=== PATIENT | female | born 1935 | race African-American/Black ===

== ENCOUNTER 2019-02-11 12:00 | Inpatient (IN) | payer MEDICARE, OTHER ==
[~2019-02-11] VITALS: Ht 160 cm; Wt 59.6 kg
[~2019-02-11 12:00] MED LIST: ALLO300T2 PO; AMLO10TA80 PO; ASPI-986 PO; BENA40TA9 PO; CARV12.545 PO; EZET1TAB6 PO; FURO40TA5 PO; LEVO125T8 PO
[2019-02-11] MEDS ORDERED: MAGNESIUM 2 G PREMIX 50 ML IV STA (12:32)
[2019-02-11] MEDS ORDERED: METHYLPREDNISOLONE SOD SUCC 125 MG/2 ML VIAL IV STA (12:32)
[2019-02-11] MEDS ORDERED: IPRATROPIUM BROMIDE (0.02%) 0.5MG/2.5ML NEB HHN STA (12:32)
[2019-02-11] MEDS ORDERED: ALBUTEROL (0.083%) 2.5MG/3ML NEB HHN STA (12:32)
[2019-02-11] MEDS ORDERED: FUROSEMIDE 20MG/2ML VIAL IVP ONE (12:45)
[2019-02-11 13:03] LABS: BASOPHILS % 0.2 % (0.0-2.0); EOSINOPHILS % 0.1 % (0.0-5.0); HEMATOCRIT. 35.9 % (36.0-48.0); HEMOGLOBIN. 11.8 g/dL (12.0-16.0); MEAN CORPUSCULAR HEMOGLOBIN 29.1 pg (28.0-32.0); MEAN CORPUSCULAR VOLUME 88.3 fL (81.0-99.0); MEAN PLATELET VOLUME 8.8 fl (7.4-10.4); MONOCYTES % 5.3 % (2.0-8.0); NEUTROPHILS % 85.4 % (40.0-76.0); PLATELET 298 x1000/uL (130-400); RED BLOOD CELL COUNT 4.07 mill/uL (4.2-5.4)
[2019-02-11 13:10] LABS: CHLORIDE 98 mEq/L (98-107); INR 1.1; PARTIAL THROMBOPLASTIN TIME 26.1 sec (23.4-31.0); PROTHROMBIN TIME 10.8 sec (9.6-11.0)
[2019-02-11] MEDS ORDERED: ASPIRIN 81MG TABLET PO ONE (13:30)
[2019-02-11] MEDS ORDERED: LEVOFLOXACIN 500MG PREMIX 100 ML IV ONE (13:30)
[2019-02-11 15:33] LABS: BG CARBOXYHEMOGLOBIN 0.1 % (0.5-1.5); BG FRACTION INSPIRED OXYGEN 40; BG HCO3 ACT 23.5 mmol/L (22.0-26.0); BG METHEMOGLOBIN 0.2 % (0.0-1.5); BG OXYHEMOGLOBIN 90.7 % (94.0-97.0); BG PCO2 38.4 mmHg (35.0-45.0); BG PH 7.405 (7.350-7.450); BG PO2 64.3 mmHg (75.0-100.0); BG SAMPLE SITE RIGHT BRACHIAL; BG TOTAL HEMOGLOBIN 11.4 g/dL (12.0-18.0); BG VENT MODE MASK - BIPAP
[2019-02-11] MEDS ORDERED: ACETAMINOPHEN 325MG TABLET PO PRN (17:45)
[2019-02-11] MEDS ORDERED: LORAZEPAM 0.5MG TABLET PO PRN (17:45)
[2019-02-11] MEDS ORDERED: ACETAMINOPHEN 650MG SUPP PR PRN (17:45)
[2019-02-11] MEDS ORDERED: CLONIDINE 0.1MG TABLET PO PRN (17:45)
[2019-02-11] MEDS ORDERED: HYDROCODONE/ACETAMINOPHEN 5/325MG TABLET PO PRN (17:45)
[2019-02-11] MEDS ORDERED: DOCUSATE SODIUM 100MG CAPSULE PO PRN (17:45)
[2019-02-11] MEDS ORDERED: MAGNESIUM/ALUMINUM HYDROXIDE/SIMETHICONE 30ML UDC PO PRN (17:45)
[2019-02-11] MEDS ORDERED: DIPHENHYDRAMINE 50MG/ML VIAL IV PRN (17:45)
[2019-02-11] MEDS ORDERED: GUAIFENESIN 200MG/10ML SUGAR FREE UDC PO PRN (17:45)
[2019-02-11] MEDS ORDERED: LEVOFLOXACIN 500MG PREMIX 100 ML IV SCH (17:45)
[2019-02-11] MEDS ORDERED: DEXTROSE 50% WATER 50ML SYRINGE IV PRN (17:45)
[2019-02-11] MEDS ORDERED: IPRATROPIUM/ALBUTEROL 0.5-3(2.5)MG/3ML NEB INH PRN (17:45)
[2019-02-11] MEDS ORDERED: ONDANSETRON HCL 4MG/2ML INJ IV PRN (17:45)
[2019-02-11] MEDS: INSULIN LISPRO 100 UNITS/ML SUBCUT SCH ×2 (18:10→22:11)
[2019-02-11 18:11] VITALS: BP 130/63
[2019-02-11] MEDS ORDERED: ASPIRIN 81MG EC TABLET PO NR (18:20)
[2019-02-11 18:21] VITALS: BP 130/63
[2019-02-11 19:11] VITALS: BP 128/62
[2019-02-11 20:16] VITALS: BP 101/66
[2019-02-11] MEDS: IPRATROPIUM/ALBUTEROL 0.5-3(2.5)MG/3ML NEB INH SCH (20:44)
[2019-02-11] MEDS: BUDESONIDE 0.5MG/2ML NEB HHN SCH (20:45)
[2019-02-11] MEDS ORDERED: NA PHOS,M-B/NA PHOS,DI-BA ENEMA 118ML PR PRN (21:00)
[2019-02-11] MEDS ORDERED: IOHEXOL-350 100 ML BOTTLE ONE (21:30)
[2019-02-11] MEDS: ENOXAPARIN 30MG/0.3ML SYR SUBCUT SCH (21:50)
[2019-02-11] MEDS: ATORVASTATIN CALCIUM 40MG TABLET PO SCH (21:51)
[2019-02-11] MEDS: FAMOTIDINE 20MG/2ML VIAL IV SCH (21:51)
[2019-02-11 22:00] VITALS: BP 107/59
[2019-02-11] MEDS: NITROGLYCERIN OINT 1GM/INCH UDPKT TD SCH (22:00)
[2019-02-11] MEDS: METHYLPREDNISOLONE SOD SUCC 40 MG/ML VIAL IV SCH (22:02)
[2019-02-11] MEDS: BLOOD SUGAR DIAGNOSTIC STRIP TEST SCH (22:09)
[2019-02-12] VITALS (16 sets, daily range): BP systolic 87–146; BP diastolic 53–92
[2019-02-12] MEDS: IPRATROPIUM/ALBUTEROL 0.5-3(2.5)MG/3ML NEB INH SCH ×6 (00:40→21:14)
[2019-02-12] MEDS: BLOOD SUGAR DIAGNOSTIC STRIP TEST SCH ×4 (06:00→21:09)
[2019-02-12] MEDS: NITROGLYCERIN OINT 1GM/INCH UDPKT TD SCH ×3 (06:00→21:36)
[2019-02-12] MEDS: METHYLPREDNISOLONE SOD SUCC 40 MG/ML VIAL IV SCH ×3 (06:11→21:40)
[2019-02-12 06:47] LABS: BASOPHILS % 0.2 % (0.0-2.0); HEMATOCRIT. 29.9 % (36.0-48.0); HEMOGLOBIN. 10.1 g/dL (12.0-16.0); LYMPHOCYTES % 16.5 % (20.0-50.0); MEAN CORPUSCULAR HEMOGLOBIN 29.5 pg (28.0-32.0); MEAN CORPUSCULAR VOLUME 87.6 fL (81.0-99.0); MEAN PLATELET VOLUME 8.3 fl (7.4-10.4); MONOCYTES % 7.5 % (2.0-8.0); NEUTROPHILS % 75.8 % (40.0-76.0); PLATELET 292 x1000/uL (130-400); RED BLOOD CELL COUNT 3.42 mill/uL (4.2-5.4); RED CELL DISTRIBUTION WIDTH 14.8 % (11.6-14.6)
[2019-02-12 07:03] LABS: CHLORIDE 98 mEq/L (98-107)
[2019-02-12 07:09] LABS: LDL CHOLESTEROL 61 mg/dL (5-100)
[2019-02-12 07:10] LABS: HDL CHOLESTEROL 82 mg/dL (40-59)
[2019-02-12 07:12] LABS: CREATINE KINASE MB FRACTION 5.1 ng/mL (0.5-3.6)
[2019-02-12 07:13] LABS: CREATINE KINASE 135 IU/L (26-192)
[2019-02-12 07:14] LABS: T4 FREE 1.59 ng/dL (0.76-1.46)
[2019-02-12] MEDS: INSULIN LISPRO 100 UNITS/ML SUBCUT SCH ×4 (07:20→21:34)
[2019-02-12] MEDS: BUDESONIDE 0.5MG/2ML NEB HHN SCH ×2 (08:36→21:13)
[2019-02-12] MEDS: FUROSEMIDE 40MG/4ML VIAL IV SCH (10:14)
[2019-02-12 10:53] LABS: BG BASE EXCESS 1.1 mmol/L (-2.0-2.0); BG CARBOXYHEMOGLOBIN 0.3 % (0.5-1.5); BG DEOXYHEMOGLOBIN 8.6 % (0.0-5.0); BG FRACTION INSPIRED OXYGEN 40; BG HCO3 ACT 24.9 mmol/L (22.0-26.0); BG METHEMOGLOBIN 0.5 % (0.0-1.5); BG OXYGEN SATURATION 91.3 % (92.0-98.5); BG OXYHEMOGLOBIN 90.6 % (94.0-97.0); BG PCO2 36.6 mmHg (35.0-45.0); BG PH 7.451 (7.350-7.450); BG PO2 63.7 mmHg (75.0-100.0); BG SAMPLE SITE RIGHT RADIAL; BG TOTAL HEMOGLOBIN 10.8 g/dL (12.0-18.0); BG VENT MODE MASK - BIPAP
[2019-02-12 11:06] LABS: CLARITY URINE CLEAR (CLEAR); COLOR URINE YELLOW (YELLOW); KETONES URINE NEGATIVE (NEGATIVE); LEUKOCYTE ESTERASE URINE NEGATIVE (NEGATIVE); NITRITE URINE NEGATIVE (NEGATIVE); OCCULT BLOOD URINE NEGATIVE (NEGATIVE); PROTEIN URINE NEGATIVE (NEGATIVE); SPECIFIC GRAVITY URINE 1.028 (1.005-1.030)
[2019-02-12 11:42] LABS: *BENZODIAZEPINES SCREEN URINE NEGATIVE (NEGATIVE); *COCAINE SCREEN URINE NEGATIVE (NEGATIVE)
[2019-02-12 11:43] LABS: CANNABINOID URINE SCREEN NEGATIVE (NEGATIVE); METHADONE URINE SCREEN NEGATIVE (NEGATIVE); OPIATES URINE SCREEN NEGATIVE (NEGATIVE); PHENCYCLIDINE URINE SCREEN NEGATIVE (NEGATIVE)
[2019-02-12 11:44] LABS: *AMPHETAMINES SCREEN URINE NEGATIVE (NEGATIVE); *BARBITURATES SCREEN URINE NEGATIVE (NEGATIVE)
[2019-02-12 14:01] LABS: HEPATITIS B SURFACE ANTIGEN NEGATIVE
[2019-02-12] MEDS: LEVOFLOXACIN 250MG PREMIX 50 ML IV SCH (14:07)
[2019-02-12 14:30] LABS: HEPATITIS A AB IGM NEGATIVE (NEGATIVE)
[2019-02-12] MEDS: MAGNESIUM HYDROXIDE 400MG/5ML 30ML UDC PO PRN (17:52)
[2019-02-12] MEDS: ENOXAPARIN 30MG/0.3ML SYR SUBCUT SCH (20:37)
[2019-02-12] MEDS: FAMOTIDINE 20MG/2ML VIAL IV SCH (20:38)
[2019-02-12] MEDS: ATORVASTATIN CALCIUM 40MG TABLET PO SCH (20:41)
[2019-02-13] VITALS (12 sets, daily range): BP systolic 98–135; BP diastolic 53–77
[2019-02-13] MEDS: IPRATROPIUM/ALBUTEROL 0.5-3(2.5)MG/3ML NEB INH SCH ×4 (05:08→20:33)
[2019-02-13] MEDS: METHYLPREDNISOLONE SOD SUCC 40 MG/ML VIAL IV SCH ×3 (05:18→21:44)
[2019-02-13] MEDS: NITROGLYCERIN OINT 1GM/INCH UDPKT TD SCH ×3 (05:23→21:45)
[2019-02-13] MEDS: BLOOD SUGAR DIAGNOSTIC STRIP TEST SCH ×4 (07:15→20:24)
[2019-02-13] MEDS: INSULIN LISPRO 100 UNITS/ML SUBCUT SCH ×4 (07:20→20:40)
[2019-02-13] MEDS: FUROSEMIDE 40MG/4ML VIAL IV SCH (08:56)
[2019-02-13] MEDS: LOSARTAN POTASSIUM 25 MG TABLET PO SCH (09:00)
[2019-02-13] MEDS ORDERED: FUROSEMIDE 40MG/4ML VIAL IVP SCH (09:00)
[2019-02-13 14:20] LABS: BG BASE EXCESS 0.3 mmol/L (-2.0-2.0); BG CARBOXYHEMOGLOBIN 0.3 % (0.5-1.5); BG DEOXYHEMOGLOBIN 10.7 % (0.0-5.0); BG HCO3 ACT 24.3 mmol/L (22.0-26.0); BG METHEMOGLOBIN 0.3 % (0.0-1.5); BG OXYGEN SATURATION 89.2 % (92.0-98.5); BG OXYHEMOGLOBIN 88.7 % (94.0-97.0); BG PCO2 36.7 mmHg (35.0-45.0); BG PH 7.439 (7.350-7.450); BG PO2 58.9 mmHg (75.0-100.0); BG SAMPLE SITE RIGHT RADIAL; BG TOTAL HEMOGLOBIN 10.4 g/dL (12.0-18.0); BG VENT MODE MASK - BIPAP; BG VENT RATE 15 set
[2019-02-13] MEDS: LEVOFLOXACIN 250MG PREMIX 50 ML IV SCH (15:08)
[2019-02-13] MEDS: BUDESONIDE 0.5MG/2ML NEB HHN SCH ×2 (15:08→20:32)
[2019-02-13] MEDS: ENOXAPARIN 30MG/0.3ML SYR SUBCUT SCH (20:22)
[2019-02-13] MEDS: ATORVASTATIN CALCIUM 40MG TABLET PO SCH (20:28)
[2019-02-13] MEDS: FAMOTIDINE 20MG/2ML VIAL IV SCH (20:28)
[2019-02-14] VITALS (15 sets, daily range): BP systolic 97–137; BP diastolic 49–87
[2019-02-14] MEDS: IPRATROPIUM/ALBUTEROL 0.5-3(2.5)MG/3ML NEB INH SCH ×6 (00:09→20:27)
[2019-02-14] MEDS: METHYLPREDNISOLONE SOD SUCC 40 MG/ML VIAL IV SCH ×3 (06:00→21:56)
[2019-02-14 06:05] LABS: HEMATOCRIT. 29.8 % (36.0-48.0); HEMOGLOBIN. 9.9 g/dL (12.0-16.0); MEAN CORPUSCULAR HEMOGLOBIN 29.1 pg (28.0-32.0); MEAN CORPUSCULAR VOLUME 87.2 fL (81.0-99.0); MEAN PLATELET VOLUME 8.3 fl (7.4-10.4); PLATELET 294 x1000/uL (130-400); RED BLOOD CELL COUNT 3.41 mill/uL (4.2-5.4); RED CELL DISTRIBUTION WIDTH 14.7 % (11.6-14.6)
[2019-02-14] MEDS: NITROGLYCERIN OINT 1GM/INCH UDPKT TD SCH ×3 (06:23→22:10)
[2019-02-14] MEDS: BLOOD SUGAR DIAGNOSTIC STRIP TEST SCH ×4 (06:31→20:16)
[2019-02-14] MEDS: INSULIN LISPRO 100 UNITS/ML SUBCUT SCH ×4 (07:45→20:16)
[2019-02-14] MEDS: LOSARTAN POTASSIUM 25 MG TABLET PO SCH (09:00)
[2019-02-14] MEDS: BUDESONIDE 0.5MG/2ML NEB HHN SCH ×2 (09:02→20:27)
[2019-02-14] MEDS: FUROSEMIDE 40MG/4ML VIAL IV SCH (09:13)
[2019-02-14 13:01] LABS: PLATELET ESTIMATE NORMAL
[2019-02-14] MEDS: LEVOFLOXACIN 250MG PREMIX 50 ML IV SCH (14:06)
[2019-02-14] MEDS: ENOXAPARIN 30MG/0.3ML SYR SUBCUT SCH (20:12)
[2019-02-14] MEDS: ATORVASTATIN CALCIUM 40MG TABLET PO SCH (20:12)
[2019-02-14] MEDS: FAMOTIDINE 20MG/2ML VIAL IV SCH (20:20)
[2019-02-14] MEDS: IRON SUCROSE COMPLEX 100 MG/5 ML ML IV SCH (22:11)
[2019-02-15] VITALS (16 sets, daily range): BP systolic 97–124; BP diastolic 37–72
[2019-02-15] MEDS: IPRATROPIUM/ALBUTEROL 0.5-3(2.5)MG/3ML NEB INH SCH ×5 (00:25→21:23)
[2019-02-15] MEDS: BLOOD SUGAR DIAGNOSTIC STRIP TEST SCH ×4 (06:29→20:38)
[2019-02-15] MEDS: METHYLPREDNISOLONE SOD SUCC 40 MG/ML VIAL IV SCH ×2 (06:34→22:20)
[2019-02-15] MEDS: NITROGLYCERIN OINT 1GM/INCH UDPKT TD SCH ×3 (06:35→22:20)
[2019-02-15 06:57] LABS: HEMATOCRIT. 30.3 % (36.0-48.0); MEAN CORPUSCULAR HEMOGLOBIN 28.7 pg (28.0-32.0); MEAN CORPUSCULAR VOLUME 87.2 fL (81.0-99.0); MEAN PLATELET VOLUME 8.4 fl (7.4-10.4); PLATELET 276 x1000/uL (130-400); RED BLOOD CELL COUNT 3.48 mill/uL (4.2-5.4); RED CELL DISTRIBUTION WIDTH 14.6 % (11.6-14.6)
[2019-02-15] MEDS: INSULIN LISPRO 100 UNITS/ML SUBCUT SCH ×4 (07:20→20:49)
[2019-02-15] MEDS: FUROSEMIDE 40MG/4ML VIAL IV SCH (08:06)
[2019-02-15] MEDS: LOSARTAN POTASSIUM 25 MG TABLET PO SCH (08:07)
[2019-02-15] MEDS: BUDESONIDE 0.5MG/2ML NEB HHN SCH ×2 (10:20→21:26)
[2019-02-15 12:22] LABS: PLATELET ESTIMATE NORMAL
[2019-02-15] MEDS: LEVOFLOXACIN 250MG PREMIX 50 ML IV SCH (14:22)
[2019-02-15] MEDS ORDERED: ZOSYN PER PHARMACY XX SCH (15:30)
[2019-02-15] MEDS: PIPERACILLIN/TAZ 2.25G PREMIX 50 ML IV SCH (17:26)
[2019-02-15] MEDS: FAMOTIDINE 20MG/2ML VIAL IV SCH (20:34)
[2019-02-15] MEDS: ENOXAPARIN 30MG/0.3ML SYR SUBCUT SCH (20:34)
[2019-02-15] MEDS: ATORVASTATIN CALCIUM 40MG TABLET PO SCH (20:34)
[2019-02-15] MEDS: IRON SUCROSE COMPLEX 100 MG/5 ML ML IV SCH (23:41)
[2019-02-16] VITALS (18 sets, daily range): BP systolic 103–135; BP diastolic 53–99
[2019-02-16] MEDS: IPRATROPIUM/ALBUTEROL 0.5-3(2.5)MG/3ML NEB INH SCH ×6 (00:44→20:58)
[2019-02-16] MEDS: PIPERACILLIN/TAZ 2.25G PREMIX 50 ML IV SCH ×4 (01:14→17:57)
[2019-02-16] MEDS: BLOOD SUGAR DIAGNOSTIC STRIP TEST SCH ×4 (06:12→20:48)
[2019-02-16] MEDS: NITROGLYCERIN OINT 1GM/INCH UDPKT TD SCH ×3 (06:20→22:33)
[2019-02-16 07:10] LABS: HEMOGLOBIN. 10.8 g/dL (12.0-16.0); MEAN CORPUSCULAR HEMOGLOBIN 28.7 pg (28.0-32.0); MEAN PLATELET VOLUME 8.5 fl (7.4-10.4); PLATELET 301 x1000/uL (130-400); RED BLOOD CELL COUNT 3.75 mill/uL (4.2-5.4); RED CELL DISTRIBUTION WIDTH 14.6 % (11.6-14.6)
[2019-02-16] MEDS: INSULIN LISPRO 100 UNITS/ML SUBCUT SCH ×4 (07:20→20:49)
[2019-02-16] MEDS: FUROSEMIDE 40MG/4ML VIAL IV SCH (08:44)
[2019-02-16] MEDS: LOSARTAN POTASSIUM 25 MG TABLET PO SCH (08:44)
[2019-02-16] MEDS: BUDESONIDE 0.5MG/2ML NEB HHN SCH ×2 (09:43→20:58)
[2019-02-16] MEDS: METHYLPREDNISOLONE SOD SUCC 40 MG/ML VIAL IV SCH ×2 (10:42→22:33)
[2019-02-16] MEDS ORDERED: LORAZEPAM 0.5MG TABLET PO PRN (12:30)
[2019-02-16] MEDS ORDERED: HYDROCODONE/ACETAMINOPHEN 5/325MG TABLET PO PRN (12:30)
[2019-02-16 15:25] LABS: PLATELET ESTIMATE NORMAL
[2019-02-16] MEDS: ENOXAPARIN 30MG/0.3ML SYR SUBCUT SCH (20:44)
[2019-02-16] MEDS: FAMOTIDINE 20MG/2ML VIAL IV SCH (20:44)
[2019-02-16] MEDS: ATORVASTATIN CALCIUM 40MG TABLET PO SCH (20:44)
[2019-02-16] MEDS: IRON SUCROSE COMPLEX 100 MG/5 ML ML IV SCH (22:36)
[2019-02-17] VITALS (17 sets, daily range): BP systolic 101–131; BP diastolic 45–71
[2019-02-17] MEDS: IPRATROPIUM/ALBUTEROL 0.5-3(2.5)MG/3ML NEB INH SCH ×6 (00:31→20:52)
[2019-02-17] MEDS: PIPERACILLIN/TAZ 2.25G PREMIX 50 ML IV SCH ×4 (00:50→18:49)
[2019-02-17] MEDS: NITROGLYCERIN OINT 1GM/INCH UDPKT TD SCH ×3 (06:12→22:12)
[2019-02-17 06:17] LABS: HEMATOCRIT. 32.2 % (36.0-48.0); HEMOGLOBIN. 10.6 g/dL (12.0-16.0); MEAN CORPUSCULAR HEMOGLOBIN 28.8 pg (28.0-32.0); MEAN CORPUSCULAR VOLUME 87.4 fL (81.0-99.0); MEAN PLATELET VOLUME 8.5 fl (7.4-10.4); PLATELET 276 x1000/uL (130-400); RED BLOOD CELL COUNT 3.68 mill/uL (4.2-5.4); RED CELL DISTRIBUTION WIDTH 14.9 % (11.6-14.6)
[2019-02-17] MEDS: BLOOD SUGAR DIAGNOSTIC STRIP TEST SCH ×4 (06:27→20:20)
[2019-02-17 06:29] LABS: CHLORIDE 103 mEq/L (98-107)
[2019-02-17] MEDS: INSULIN LISPRO 100 UNITS/ML SUBCUT SCH ×5 (07:20→20:25)
[2019-02-17] MEDS: FUROSEMIDE 40MG TABLET PO SCH (09:07)
[2019-02-17] MEDS: LOSARTAN POTASSIUM 25 MG TABLET PO SCH (09:07)
[2019-02-17] MEDS: BUDESONIDE 0.5MG/2ML NEB HHN SCH ×2 (09:23→20:52)
[2019-02-17 09:48] LABS: BG BASE EXCESS 2.7 mmol/L (-2.0-2.0); BG CARBOXYHEMOGLOBIN 0.4 % (0.5-1.5); BG DEOXYHEMOGLOBIN 32.3 % (0.0-5.0); BG FRACTION INSPIRED OXYGEN 21; BG HCO3 ACT 27.7 mmol/L (22.0-26.0); BG METHEMOGLOBIN 0.2 % (0.0-1.5); BG OXYGEN SATURATION 67.5 % (92.0-98.5); BG OXYHEMOGLOBIN 67.1 % (94.0-97.0); BG PCO2 44.4 mmHg (35.0-45.0); BG PH 7.413 (7.350-7.450); BG PO2 35.5 mmHg (75.0-100.0); BG SAMPLE SITE RIGHT BRACHIAL; BG TOTAL HEMOGLOBIN 11.5 g/dL (12.0-18.0); BG VENT MODE ROOM AIR
[2019-02-17 10:44] LABS: NUCLEATED RED BLOOD CELLS 1 /100 WBC
[2019-02-17 10:45] LABS: PLATELET ESTIMATE NORMAL
[2019-02-17] MEDS: METHYLPREDNISOLONE SOD SUCC 40 MG/ML VIAL IV SCH ×2 (11:04→22:12)
[2019-02-17] MEDS: FAMOTIDINE 20MG/2ML VIAL IV SCH (20:12)
[2019-02-17] MEDS: ENOXAPARIN 40MG/0.4ML SYR SUBCUT SCH (20:12)
[2019-02-17] MEDS: ATORVASTATIN CALCIUM 40MG TABLET PO SCH (20:12)
[2019-02-18] VITALS (18 sets, daily range): BP systolic 94–132; BP diastolic 51–83
[2019-02-18] MEDS: IPRATROPIUM/ALBUTEROL 0.5-3(2.5)MG/3ML NEB INH SCH ×6 (00:25→21:19)
[2019-02-18] MEDS: PIPERACILLIN/TAZ 2.25G PREMIX 50 ML IV SCH ×5 (00:52→23:07)
[2019-02-18] MEDS: NITROGLYCERIN OINT 1GM/INCH UDPKT TD SCH ×3 (06:14→22:43)
[2019-02-18] MEDS: BLOOD SUGAR DIAGNOSTIC STRIP TEST SCH ×4 (06:17→20:19)
[2019-02-18 06:36] LABS: HEMATOCRIT 32.1 % (36.0-48.0); HEMOGLOBIN 10.4 g/dL (12.0-16.0); MEAN CORPUSCULAR HEMOGLOBIN 28.2 pg (28.0-32.0); MEAN CORPUSCULAR VOLUME 87.3 fL (81.0-99.0); PLATELET 281 x1000/uL (130-400); RED BLOOD CELL COUNT 3.68 mill/uL (4.2-5.4); RED CELL DISTRIBUTION WIDTH 14.8 % (11.6-14.6)
[2019-02-18] MEDS: INSULIN LISPRO 100 UNITS/ML SUBCUT SCH ×4 (07:20→20:19)
[2019-02-18] MEDS: FUROSEMIDE 40MG TABLET PO SCH (07:52)
[2019-02-18] MEDS: LOSARTAN POTASSIUM 25 MG TABLET PO SCH (07:52)
[2019-02-18] MEDS: METHYLPREDNISOLONE SOD SUCC 40 MG/ML VIAL IV SCH (09:59)
[2019-02-18] MEDS: BUDESONIDE 0.5MG/2ML NEB HHN SCH ×2 (10:11→21:19)
[2019-02-18] MEDS ORDERED: LACTULOSE 20G/30ML UDC PO SCH (14:45)
[2019-02-18] MEDS: FAMOTIDINE 20MG/2ML VIAL IV SCH (20:16)
[2019-02-18] MEDS: ATORVASTATIN CALCIUM 40MG TABLET PO SCH (20:16)
[2019-02-18] MEDS: ENOXAPARIN 40MG/0.4ML SYR SUBCUT SCH (20:16)
[2019-02-18] MEDS ORDERED: FUROSEMIDE 40MG/4ML VIAL IVP NR (22:45)
[2019-02-18 22:52] LABS: BG BASE EXCESS 5.7 mmol/L (-2.0-2.0); BG DEOXYHEMOGLOBIN 10.2 % (0.0-5.0); BG FRACTION INSPIRED OXYGEN 50; BG HCO3 ACT 31.4 mmol/L (22.0-26.0); BG METHEMOGLOBIN 0.1 % (0.0-1.5); BG OXYGEN SATURATION 89.8 % (92.0-98.5); BG OXYHEMOGLOBIN 89.7 % (94.0-97.0); BG PCO2 51.1 mmHg (35.0-45.0); BG PH 7.407 (7.350-7.450); BG PO2 61.3 mmHg (75.0-100.0); BG SAMPLE SITE RIGHT RADIAL; BG TOTAL HEMOGLOBIN 11.3 g/dL (12.0-18.0); BG VENT MODE MASK - BIPAP
[2019-02-19] VITALS (12 sets, daily range): BP systolic 88–132; BP diastolic 49–78
[2019-02-19] MEDS: IPRATROPIUM/ALBUTEROL 0.5-3(2.5)MG/3ML NEB INH SCH ×6 (01:29→20:27)
[2019-02-19] MEDS: BLOOD SUGAR DIAGNOSTIC STRIP TEST SCH ×4 (05:55→21:07)
[2019-02-19] MEDS: PIPERACILLIN/TAZ 2.25G PREMIX 50 ML IV SCH ×4 (05:56→23:15)
[2019-02-19] MEDS: NITROGLYCERIN OINT 1GM/INCH UDPKT TD SCH ×3 (05:57→21:08)
[2019-02-19] MEDS: INSULIN LISPRO 100 UNITS/ML SUBCUT SCH ×4 (07:20→21:00)
[2019-02-19] MEDS: MAGNESIUM HYDROXIDE 400MG/5ML 30ML UDC PO PRN (08:05)
[2019-02-19] MEDS: LOSARTAN POTASSIUM 25 MG TABLET PO SCH (08:05)
[2019-02-19] MEDS: FUROSEMIDE 40MG TABLET PO SCH (08:05)
[2019-02-19] MEDS: BUDESONIDE 0.5MG/2ML NEB HHN SCH ×2 (08:19→20:27)
[2019-02-19] MEDS ORDERED: METHYLPREDNISOLONE SOD SUCC 40 MG/ML VIAL IV SCH (09:00)
[2019-02-19 11:47] LABS: HEMATOCRIT 31.9 % (36.0-48.0); HEMOGLOBIN 10.4 g/dL (12.0-16.0); MEAN CORPUSCULAR HEMOGLOBIN 28.8 pg (28.0-32.0); MEAN CORPUSCULAR VOLUME 88.4 fL (81.0-99.0); PLATELET 271 x1000/uL (130-400); RED BLOOD CELL COUNT 3.61 mill/uL (4.2-5.4); RED CELL DISTRIBUTION WIDTH 14.9 % (11.6-14.6)
[2019-02-19 11:54] LABS: CHLORIDE 101 mEq/L (98-107)
[2019-02-19] MEDS ORDERED: FUROSEMIDE 40MG/4ML VIAL IVP NR (12:45)
[2019-02-19 14:19] LABS: BG BASE EXCESS 7.2 mmol/L (-2.0-2.0); BG BILEVEL POS AIRWAY PRESSURE ST=15/8; BG CARBOXYHEMOGLOBIN 0.2 % (0.5-1.5); BG DEOXYHEMOGLOBIN 11.1 % (0.0-5.0); BG FRACTION INSPIRED OXYGEN 60; BG METHEMOGLOBIN 0.2 % (0.0-1.5); BG OXYGEN SATURATION 88.9 % (92.0-98.5); BG OXYHEMOGLOBIN 88.5 % (94.0-97.0); BG PCO2 46.6 mmHg (35.0-45.0); BG PH 7.455 (7.350-7.450); BG PO2 57.6 mmHg (75.0-100.0); BG PRESSURE SUPPORT 7; BG SAMPLE SITE LEFT BRACHIAL; BG TOTAL HEMOGLOBIN 11.2 g/dL (12.0-18.0); BG VENT MODE MASK - BIPAP; BG VENT RATE 15 set
[2019-02-19] MEDS: METHYLPREDNISOLONE SOD SUCC 40 MG/ML VIAL IV SCH (17:29)
[2019-02-19 20:07] LABS: BG BASE EXCESS 6.6 mmol/L (-2.0-2.0); BG BILEVEL POS AIRWAY PRESSURE 18/5; BG FRACTION INSPIRED OXYGEN 60; BG HCO3 ACT 31.5 mmol/L (22.0-26.0); BG METHEMOGLOBIN 0.1 % (0.0-1.5); BG OXYHEMOGLOBIN 94.9 % (94.0-97.0); BG PCO2 46.6 mmHg (35.0-45.0); BG PH 7.448 (7.350-7.450); BG PO2 78.6 mmHg (75.0-100.0); BG SAMPLE SITE RIGHT RADIAL; BG TOTAL HEMOGLOBIN 10.9 g/dL (12.0-18.0); BG VENT MODE MASK - BIPAP; BG VENT RATE 18 set
[2019-02-19] MEDS: FAMOTIDINE 20MG/2ML VIAL IV SCH (21:04)
[2019-02-19] MEDS: ENOXAPARIN 40MG/0.4ML SYR SUBCUT SCH (21:04)
[2019-02-19] MEDS: ATORVASTATIN CALCIUM 40MG TABLET PO SCH (21:04)
[2019-02-20] VITALS (24 sets, daily range): BP systolic 62–129; BP diastolic 37–105
[2019-02-20] MEDS: IPRATROPIUM/ALBUTEROL 0.5-3(2.5)MG/3ML NEB INH SCH ×6 (00:14→20:21)
[2019-02-20] MEDS ORDERED: FUROSEMIDE 40MG/4ML VIAL IVP SCH (01:30)
[2019-02-20 02:15] LABS: BG BASE EXCESS 6.5 mmol/L (-2.0-2.0); BG BILEVEL POS AIRWAY PRESSURE 18/5; BG CARBOXYHEMOGLOBIN 0.3 % (0.5-1.5); BG DEOXYHEMOGLOBIN 0.9 % (0.0-5.0); BG FRACTION INSPIRED OXYGEN 100; BG HCO3 ACT 30.9 mmol/L (22.0-26.0); BG METHEMOGLOBIN 0.1 % (0.0-1.5); BG OXYGEN SATURATION 99.1 % (92.0-98.5); BG OXYHEMOGLOBIN 98.7 % (94.0-97.0); BG PCO2 43.9 mmHg (35.0-45.0); BG PH 7.466 (7.350-7.450); BG PO2 230.7 mmHg (75.0-100.0); BG PRESSURE SUPPORT 13; BG SAMPLE SITE RIGHT RADIAL; BG TOTAL HEMOGLOBIN 10.5 g/dL (12.0-18.0); BG VENT MODE MASK - BIPAP
[2019-02-20] MEDS: PIPERACILLIN/TAZ 2.25G PREMIX 50 ML IV SCH (06:18)
[2019-02-20] MEDS: NITROGLYCERIN OINT 1GM/INCH UDPKT TD SCH ×3 (06:19→21:16)
[2019-02-20] MEDS: BLOOD SUGAR DIAGNOSTIC STRIP TEST SCH ×4 (06:26→22:00)
[2019-02-20] MEDS: INSULIN LISPRO 100 UNITS/ML SUBCUT SCH ×3 (06:27→17:20)
[2019-02-20 06:32] LABS: HEMATOCRIT. 32.2 % (36.0-48.0); HEMOGLOBIN. 10.1 g/dL (12.0-16.0); MEAN CORPUSCULAR HEMOGLOBIN 27.8 pg (28.0-32.0); MEAN CORPUSCULAR VOLUME 88.2 fL (81.0-99.0); MEAN PLATELET VOLUME 8.1 fl (7.4-10.4); PLATELET 269 x1000/uL (130-400); RED BLOOD CELL COUNT 3.65 mill/uL (4.2-5.4); RED CELL DISTRIBUTION WIDTH 15.1 % (11.6-14.6)
[2019-02-20] MEDS ORDERED: FUROSEMIDE 40MG TABLET PO SCH (09:00)
[2019-02-20] MEDS: BUDESONIDE 0.5MG/2ML NEB HHN SCH ×2 (09:40→20:21)
[2019-02-20] MEDS: FUROSEMIDE 40MG/4ML VIAL IVP SCH ×2 (09:42→18:13)
[2019-02-20] MEDS: LOSARTAN POTASSIUM 25 MG TABLET PO SCH (09:42)
[2019-02-20] MEDS: METHYLPREDNISOLONE SOD SUCC 40 MG/ML VIAL IV SCH ×2 (09:42→18:12)
[2019-02-20] MEDS: MEROPENEM 1,000 MG in SODIUM CHLORIDE 0.9% 100 ML IV SCH (13:33)
[2019-02-20 14:01] LABS: BG BASE EXCESS 9.1 mmol/L (-2.0-2.0); BG BILEVEL POS AIRWAY PRESSURE 18/5; BG CARBOXYHEMOGLOBIN 0.3 % (0.5-1.5); BG DEOXYHEMOGLOBIN 9.2 % (0.0-5.0); BG FRACTION INSPIRED OXYGEN 50; BG HCO3 ACT 33.3 mmol/L (22.0-26.0); BG METHEMOGLOBIN 0.3 % (0.0-1.5); BG OXYGEN SATURATION 90.7 % (92.0-98.5); BG OXYHEMOGLOBIN 90.2 % (94.0-97.0); BG PCO2 44.3 mmHg (35.0-45.0); BG PH 7.494 (7.350-7.450); BG PO2 60.3 mmHg (75.0-100.0); BG SAMPLE SITE RIGHT BRACHIAL; BG TOTAL HEMOGLOBIN 10.7 g/dL (12.0-18.0); BG VENT MODE MASK - BIPAP; BG VENT RATE 18 set
[2019-02-20 18:20] LABS: PLATELET ESTIMATE NORMAL
[2019-02-20] MEDS: ATORVASTATIN CALCIUM 40MG TABLET PO SCH (21:14)
[2019-02-20] MEDS: ENOXAPARIN 40MG/0.4ML SYR SUBCUT SCH (21:14)
[2019-02-20] MEDS: FAMOTIDINE 20MG/2ML VIAL IV SCH (21:14)
[2019-02-21] VITALS (13 sets, daily range): BP systolic 92–119; BP diastolic 42–86
[2019-02-21] MEDS: IPRATROPIUM/ALBUTEROL 0.5-3(2.5)MG/3ML NEB INH SCH ×6 (01:03→21:31)
[2019-02-21] MEDS: FUROSEMIDE 40MG/4ML VIAL IVP SCH ×3 (01:55→17:13)
[2019-02-21] MEDS: MEROPENEM 1,000 MG in SODIUM CHLORIDE 0.9% 100 ML IV SCH ×2 (01:58→15:09)
[2019-02-21] MEDS: NITROGLYCERIN OINT 1GM/INCH UDPKT TD SCH ×3 (06:42→22:20)
[2019-02-21] MEDS: BLOOD SUGAR DIAGNOSTIC STRIP TEST SCH ×4 (06:50→21:02)
[2019-02-21] MEDS: BUDESONIDE 0.5MG/2ML NEB HHN SCH ×2 (07:14→21:31)
[2019-02-21] MEDS: INSULIN LISPRO 100 UNITS/ML SUBCUT SCH ×5 (07:20→21:00)
[2019-02-21] MEDS: LOSARTAN POTASSIUM 25 MG TABLET PO SCH (08:27)
[2019-02-21] MEDS: METHYLPREDNISOLONE SOD SUCC 40 MG/ML VIAL IV SCH ×2 (08:27→17:13)
[2019-02-21 12:26] LABS: BG BASE EXCESS 11.8 mmol/L (-2.0-2.0); BG BILEVEL POS AIRWAY PRESSURE 18/5; BG CARBOXYHEMOGLOBIN 0.3 % (0.5-1.5); BG DEOXYHEMOGLOBIN 20.7 % (0.0-5.0); BG FRACTION INSPIRED OXYGEN 60; BG HCO3 ACT 37.1 mmol/L (22.0-26.0); BG METHEMOGLOBIN 0.4 % (0.0-1.5); BG OXYGEN SATURATION 79.2 % (92.0-98.5); BG OXYHEMOGLOBIN 78.6 % (94.0-97.0); BG PCO2 53.5 mmHg (35.0-45.0); BG PH 7.459 (7.350-7.450); BG SAMPLE SITE RIGHT BRACHIAL; BG TOTAL HEMOGLOBIN 9.5 g/dL (12.0-18.0); BG VENT MODE MASK - BIPAP
[2019-02-21] MEDS ORDERED: LORAZEPAM 0.5MG TABLET PO PRN (13:45)
[2019-02-21] MEDS: ENOXAPARIN 40MG/0.4ML SYR SUBCUT SCH (20:56)
[2019-02-21] MEDS: ATORVASTATIN CALCIUM 40MG TABLET PO SCH (21:05)
[2019-02-21] MEDS: FAMOTIDINE 20MG/2ML VIAL IV SCH (21:05)
[2019-02-22] VITALS (21 sets, daily range): BP systolic 88–123; BP diastolic 41–87
[2019-02-22] MEDS: IPRATROPIUM/ALBUTEROL 0.5-3(2.5)MG/3ML NEB INH SCH ×6 (00:51→19:54)
[2019-02-22] MEDS: MEROPENEM 1,000 MG in SODIUM CHLORIDE 0.9% 100 ML IV SCH ×2 (01:36→14:50)
[2019-02-22] MEDS: NITROGLYCERIN OINT 1GM/INCH UDPKT TD SCH (06:00)
[2019-02-22] MEDS: BLOOD SUGAR DIAGNOSTIC STRIP TEST SCH ×4 (06:16→21:17)
[2019-02-22] MEDS: FUROSEMIDE 40MG/4ML VIAL IVP SCH (06:21)
[2019-02-22 06:27] LABS: HEMATOCRIT 24.7 % (36.0-48.0); MEAN CORPUSCULAR HEMOGLOBIN 28.5 pg (28.0-32.0); MEAN CORPUSCULAR VOLUME 87.5 fL (81.0-99.0); PLATELET 199 x1000/uL (130-400); RED BLOOD CELL COUNT 2.82 mill/uL (4.2-5.4); RED CELL DISTRIBUTION WIDTH 14.8 % (11.6-14.6)
[2019-02-22] MEDS: INSULIN LISPRO 100 UNITS/ML SUBCUT SCH ×4 (06:51→21:00)
[2019-02-22] MEDS: METHYLPREDNISOLONE SOD SUCC 40 MG/ML VIAL IV SCH (08:11)
[2019-02-22] MEDS: LOSARTAN POTASSIUM 25 MG TABLET PO SCH (08:12)
[2019-02-22] MEDS: BUDESONIDE 0.5MG/2ML NEB HHN SCH ×2 (09:15→19:54)
[2019-02-22 10:17] LABS: BG BASE EXCESS 8.9 mmol/L (-2.0-2.0); BG BILEVEL POS AIRWAY PRESSURE ST=18/5; BG CARBOXYHEMOGLOBIN 0.3 % (0.5-1.5); BG DEOXYHEMOGLOBIN 11.5 % (0.0-5.0); BG FRACTION INSPIRED OXYGEN 80; BG HCO3 ACT 32.8 mmol/L (22.0-26.0); BG METHEMOGLOBIN 0.4 % (0.0-1.5); BG OXYGEN SATURATION 88.4 % (92.0-98.5); BG OXYHEMOGLOBIN 87.8 % (94.0-97.0); BG PCO2 42.4 mmHg (35.0-45.0); BG PH 7.506 (7.350-7.450); BG PO2 56.7 mmHg (75.0-100.0); BG PRESSURE SUPPORT 13; BG SAMPLE SITE LEFT BRACHIAL; BG TOTAL HEMOGLOBIN 8.4 g/dL (12.0-18.0); BG VENT MODE MASK - BIPAP; BG VENT RATE 18 set
[2019-02-22] MEDS ORDERED: KCL 20MEQ/100ML PREMIX 100 ML IV SCH (11:00)
[2019-02-22 12:52] LABS: HEMATOCRIT 23.8 % (36.0-48.0); HEMOGLOBIN 7.8 g/dL (12.0-16.0)
[2019-02-22] MEDS ORDERED: FUROSEMIDE 40MG/4ML VIAL IVP NR (13:15)
[2019-02-22 21:01] LABS: HEMATOCRIT 26.5 % (36.0-48.0); HEMOGLOBIN 8.8 g/dL (12.0-16.0)
[2019-02-22 21:08] LABS: INR 1.1; PROTHROMBIN TIME 11.3 sec (9.6-11.0)
[2019-02-22] MEDS: ATORVASTATIN CALCIUM 40MG TABLET PO SCH (21:20)
[2019-02-22] MEDS: FAMOTIDINE 20MG/2ML VIAL IV SCH (21:20)
[2019-02-23] VITALS (13 sets, daily range): BP systolic 85–118; BP diastolic 45–68
[2019-02-23] MEDS: IPRATROPIUM/ALBUTEROL 0.5-3(2.5)MG/3ML NEB INH SCH ×6 (00:10→19:50)
[2019-02-23] MEDS: MEROPENEM 1,000 MG in SODIUM CHLORIDE 0.9% 100 ML IV SCH ×2 (02:11→14:08)
[2019-02-23] MEDS: INSULIN LISPRO 100 UNITS/ML SUBCUT SCH ×4 (06:50→20:57)
[2019-02-23] MEDS: BLOOD SUGAR DIAGNOSTIC STRIP TEST SCH ×4 (06:50→20:53)
[2019-02-23 06:58] LABS: BASOPHILS % 0.2 % (0.0-2.0); EOSINOPHILS % 0.1 % (0.0-5.0); HEMATOCRIT. 28.8 % (36.0-48.0); HEMOGLOBIN. 9.4 g/dL (12.0-16.0); LYMPHOCYTES % 10.1 % (20.0-50.0); MEAN CORPUSCULAR HEMOGLOBIN 28.4 pg (28.0-32.0); MEAN CORPUSCULAR VOLUME 86.6 fL (81.0-99.0); MEAN PLATELET VOLUME 8.5 fl (7.4-10.4); MONOCYTES % 7.5 % (2.0-8.0); NEUTROPHILS % 82.1 % (40.0-76.0); PLATELET 174 x1000/uL (130-400); RED BLOOD CELL COUNT 3.32 mill/uL (4.2-5.4); RED CELL DISTRIBUTION WIDTH 16.3 % (11.6-14.6)
[2019-02-23 07:29] LABS: CHLORIDE 104 mEq/L (98-107)
[2019-02-23 07:58] LABS: BG BASE EXCESS 9.2 mmol/L (-2.0-2.0); BG BILEVEL POS AIRWAY PRESSURE ST=18/5; BG CARBOXYHEMOGLOBIN 0.3 % (0.5-1.5); BG DEOXYHEMOGLOBIN 17.5 % (0.0-5.0); BG FRACTION INSPIRED OXYGEN 80; BG HCO3 ACT 32.9 mmol/L (22.0-26.0); BG METHEMOGLOBIN 0.4 % (0.0-1.5); BG OXYGEN SATURATION 82.4 % (92.0-98.5); BG OXYHEMOGLOBIN 81.8 % (94.0-97.0); BG PCO2 41.6 mmHg (35.0-45.0); BG PH 7.516 (7.350-7.450); BG PO2 45.8 mmHg (75.0-100.0); BG SAMPLE SITE LEFT BRACHIAL; BG TOTAL HEMOGLOBIN 9.8 g/dL (12.0-18.0); BG VENT MODE MASK - BIPAP; BG VENT RATE 18 set
[2019-02-23] MEDS: LOSARTAN POTASSIUM 25 MG TABLET PO SCH (08:20)
[2019-02-23] MEDS: FUROSEMIDE 40MG/4ML VIAL IVP SCH (08:21)
[2019-02-23] MEDS: METHYLPREDNISOLONE SOD SUCC 40 MG/ML VIAL IV SCH (08:21)
[2019-02-23] MEDS: BUDESONIDE 0.5MG/2ML NEB HHN SCH ×2 (09:20→19:50)
[2019-02-23] MEDS ORDERED: POTASSIUM CHLORIDE 20MEQ/PACKET PO NR (09:30)
[2019-02-23] MEDS: ATORVASTATIN CALCIUM 40MG TABLET PO SCH (20:57)
[2019-02-23] MEDS: FAMOTIDINE 20MG/2ML VIAL IV SCH (22:56)
[2019-02-24] VITALS (12 sets, daily range): BP systolic 91–137; BP diastolic 48–71
[2019-02-24] MEDS: IPRATROPIUM/ALBUTEROL 0.5-3(2.5)MG/3ML NEB INH SCH ×6 (01:33→20:16)
[2019-02-24] MEDS: MEROPENEM 1,000 MG in SODIUM CHLORIDE 0.9% 100 ML IV SCH ×2 (02:49→14:31)
[2019-02-24 06:11] LABS: HEMATOCRIT 28.2 % (36.0-48.0); HEMOGLOBIN 9.3 g/dL (12.0-16.0); MEAN CORPUSCULAR HEMOGLOBIN 28.5 pg (28.0-32.0); MEAN CORPUSCULAR VOLUME 86.6 fL (81.0-99.0); PLATELET 168 x1000/uL (130-400); RED BLOOD CELL COUNT 3.26 mill/uL (4.2-5.4)
[2019-02-24 06:13] LABS: CHLORIDE 103 mEq/L (98-107)
[2019-02-24] MEDS: BLOOD SUGAR DIAGNOSTIC STRIP TEST SCH ×4 (06:35→21:00)
[2019-02-24] MEDS: INSULIN LISPRO 100 UNITS/ML SUBCUT SCH ×4 (06:35→21:00)
[2019-02-24] MEDS: BUDESONIDE 0.5MG/2ML NEB HHN SCH ×2 (07:09→20:16)
[2019-02-24] MEDS: METHYLPREDNISOLONE SOD SUCC 40 MG/ML VIAL IV SCH (08:42)
[2019-02-24] MEDS: FUROSEMIDE 40MG/4ML VIAL IVP SCH (08:42)
[2019-02-24] MEDS: LOSARTAN POTASSIUM 25 MG TABLET PO SCH (08:52)
[2019-02-24 09:05] LABS: BG BASE EXCESS 7.3 mmol/L (-2.0-2.0); BG BILEVEL POS AIRWAY PRESSURE 18/5; BG CARBOXYHEMOGLOBIN 0.3 % (0.5-1.5); BG DEOXYHEMOGLOBIN 15.7 % (0.0-5.0); BG FRACTION INSPIRED OXYGEN 100; BG HCO3 ACT 31.5 mmol/L (22.0-26.0); BG METHEMOGLOBIN 0.3 % (0.0-1.5); BG OXYGEN SATURATION 84.2 % (92.0-98.5); BG OXYHEMOGLOBIN 83.7 % (94.0-97.0); BG PCO2 43.5 mmHg (35.0-45.0); BG PH 7.478 (7.350-7.450); BG PO2 49.1 mmHg (75.0-100.0); BG SAMPLE SITE RIGHT BRACHIAL; BG TOTAL HEMOGLOBIN 10.1 g/dL (12.0-18.0); BG VENT MODE MASK - BIPAP; BG VENT RATE 18 set
[2019-02-24] MEDS ORDERED: SPIRONOLACTONE 25MG TABLET PO SCH (10:15)
[2019-02-24] MEDS: ATORVASTATIN CALCIUM 40MG TABLET PO SCH (21:00)
[2019-02-24] MEDS: FAMOTIDINE 20MG/2ML VIAL IV SCH (21:00)
[2019-02-25] VITALS (13 sets, daily range): BP systolic 99–124; BP diastolic 37–70
[2019-02-25] MEDS: IPRATROPIUM/ALBUTEROL 0.5-3(2.5)MG/3ML NEB INH SCH ×7 (00:27→20:31)
[2019-02-25] MEDS: MEROPENEM 1,000 MG in SODIUM CHLORIDE 0.9% 100 ML IV SCH ×2 (02:20→15:05)
[2019-02-25] MEDS: BLOOD SUGAR DIAGNOSTIC STRIP TEST SCH ×6 (06:02→21:35)
[2019-02-25 06:43] LABS: HEMATOCRIT 31.4 % (36.0-48.0); HEMOGLOBIN 10.2 g/dL (12.0-16.0); MEAN CORPUSCULAR HEMOGLOBIN 28.3 pg (28.0-32.0); MEAN CORPUSCULAR VOLUME 87.3 fL (81.0-99.0); PLATELET 157 x1000/uL (130-400); RED CELL DISTRIBUTION WIDTH 16.1 % (11.6-14.6)
[2019-02-25 06:51] LABS: CHLORIDE 102 mEq/L (98-107)
[2019-02-25 07:10] LABS: BG BASE EXCESS 2.6 mmol/L (-2.0-2.0); BG BILEVEL POS AIRWAY PRESSURE 18/5; BG CARBOXYHEMOGLOBIN 0.1 % (0.5-1.5); BG DEOXYHEMOGLOBIN 14.4 % (0.0-5.0); BG HCO3 ACT 26.5 mmol/L (22.0-26.0); BG METHEMOGLOBIN 0.2 % (0.0-1.5); BG OXYGEN SATURATION 85.6 % (92.0-98.5); BG OXYHEMOGLOBIN 85.3 % (94.0-97.0); BG PCO2 37.9 mmHg (35.0-45.0); BG PH 7.462 (7.350-7.450); BG PO2 50.4 mmHg (75.0-100.0); BG SAMPLE SITE RIGHT BRACHIAL; BG TOTAL HEMOGLOBIN 10.8 g/dL (12.0-18.0); BG VENT MODE MASK - BIPAP; BG VENT RATE 18 set
[2019-02-25] MEDS: INSULIN LISPRO 100 UNITS/ML SUBCUT SCH ×5 (07:20→21:41)
[2019-02-25] MEDS: BUDESONIDE 0.5MG/2ML NEB HHN SCH ×2 (07:37→20:32)
[2019-02-25] MEDS: LOSARTAN POTASSIUM 25 MG TABLET PO SCH ×2 (08:32→08:46)
[2019-02-25] MEDS: METHYLPREDNISOLONE SOD SUCC 40 MG/ML VIAL IV SCH (08:33)
[2019-02-25] MEDS: FUROSEMIDE 40MG/4ML VIAL IVP SCH (08:33)
[2019-02-25] MEDS ORDERED: MORPHINE SULFATE 4 MG/ML CPJ (NOT FOR IM USE) IV PRN (11:30)
[2019-02-25] MEDS ORDERED: ZOLPIDEM TARTRATE 5MG TABLET PO PRN (11:30)
[2019-02-25] MEDS ORDERED: HYDROCODONE/ACETAMINOPHEN 5/325MG TABLET PO PRN (19:00)
[2019-02-25] MEDS ORDERED: MORPHINE SULFATE 10MG/5ML ORAL SOLN UDC PO PRN (20:45)
[2019-02-25] MEDS: FAMOTIDINE 20MG/2ML VIAL IV SCH (21:00)
[2019-02-25] MEDS: ATORVASTATIN CALCIUM 40MG TABLET PO SCH (21:25)
== END 2019-02-25 22:20 | DRG 280 ==
LOC: ER 12:00 → EDBEDREQ 12:38 → 3WST 13:47 → EDBEDREQSVC 13:51 → EDBEDREQ 13:51 → EDBEDREQTM 13:52 → EDBEDREQ 14:26 → EDBEDREQSVC 14:26 → ENRESERV 14:48 → UNDODISIN 02-12 23:41 → 3WST 02-13 12:04
PROVIDERS: ADMIT Internal Medicine; ATTEND Internal Medicine
PROC: 5A09357 Assistance with Respiratory Ventilation, Less than 24 Consecutive Hours, Continuous Positive Airway Pressure (ICD-10-PCS; 2019-02-11)
PROC: 5A09357 Assistance with Respiratory Ventilation, Less than 24 Consecutive Hours, Continuous Positive Airway Pressure (ICD-10-PCS; 2019-02-12)
PROC: 5A09357 Assistance with Respiratory Ventilation, Less than 24 Consecutive Hours, Continuous Positive Airway Pressure (ICD-10-PCS; 2019-02-14)
PROC: 5A09357 Assistance with Respiratory Ventilation, Less than 24 Consecutive Hours, Continuous Positive Airway Pressure (ICD-10-PCS; 2019-02-16)
PROC: 5A09357 Assistance with Respiratory Ventilation, Less than 24 Consecutive Hours, Continuous Positive Airway Pressure (ICD-10-PCS; 2019-02-17)
PROC: 5A09357 Assistance with Respiratory Ventilation, Less than 24 Consecutive Hours, Continuous Positive Airway Pressure (ICD-10-PCS; 2019-02-18)
PROC: 5A09357 Assistance with Respiratory Ventilation, Less than 24 Consecutive Hours, Continuous Positive Airway Pressure (ICD-10-PCS; 2019-02-19)
PROC: 5A09557 Assistance with Respiratory Ventilation, Greater than 96 Consecutive Hours, Continuous Positive Airway Pressure (ICD-10-PCS; 2019-02-20)
PROC: 30233N1 Transfusion of Nonautologous Red Blood Cells into Peripheral Vein, Percutaneous Approach (ICD-10-PCS; principal; 2019-02-22)
PROC: 5A09357 Assistance with Respiratory Ventilation, Less than 24 Consecutive Hours, Continuous Positive Airway Pressure (ICD-10-PCS; 2019-02-24)
PROC: 5A09357 Assistance with Respiratory Ventilation, Less than 24 Consecutive Hours, Continuous Positive Airway Pressure (ICD-10-PCS; 2019-02-25)
DX: I11.0 Hypertensive heart disease with heart failure (principal); I21.4 Non-ST elevation (NSTEMI) myocardial infarction; J18.9 Pneumonia, unspecified organism; J96.02 Acute respiratory failure with hypercapnia; J96.01 Acute respiratory failure with hypoxia; J44.0 Chronic obstructive pulmonary disease with (acute) lower respiratory infection; J44.1 Chronic obstructive pulmonary disease with (acute) exacerbation; J98.11 Atelectasis; R17 Unspecified jaundice; I50.43 Acute on chronic combined systolic (congestive) and diastolic (congestive) heart failure; I42.9 Cardiomyopathy, unspecified; I25.2 Old myocardial infarction; D64.9 Anemia, unspecified; E03.9 Hypothyroidism, unspecified; E78.5 Hyperlipidemia, unspecified; R74.0 Nonspecific elevation of levels of transaminase and lactic acid dehydrogenase [LDH]; E87.6 Hypokalemia; I71.4 Abdominal aortic aneurysm, without rupture; I08.0 Rheumatic disorders of both mitral and aortic valves; I15.0 Renovascular hypertension; I25.10 Atherosclerotic heart disease of native coronary artery without angina pectoris; I73.9 Peripheral vascular disease, unspecified; I27.20 Pulmonary hypertension, unspecified; I48.91 Unspecified atrial fibrillation; M10.9 Gout, unspecified; Z51.5 Encounter for palliative care; Z66 Do not resuscitate; Z79.899 Other long term (current) drug therapy; Z87.891 Personal history of nicotine dependence; Z99.81 Dependence on supplemental oxygen; Z90.49 Acquired absence of other specified parts of digestive tract
CPT/HCPCS: 36415; 36600; 71045; 71275; 76700; 80048; 80061; 80305; 82248; 82270; 82375; 82550; 82553; 82805; 82962; 83036; 83540; 83550; 83605; 83735; 83880; 84132; 84145; 84439; 84443; 84481; 84484; 84550; 85014; 85018; 85027; 85049; 85379; 85384; 86705; 86709; 86803; 86850; 86900; 86920; 87340; 93005; 93306; 93970; 94640; 94660; 96365; 96375; 97162; 97166; 99285; J1200; J1650; J1815; J1940; J1956; J2185; J2270; J2543; J2920; J2930; J3475; J3480; J3490; J7050; J7611; J7620; J7626; P9016; Q9967